=== PATIENT | female | born 1980 | race Caucasian/White ===

== ENCOUNTER 2017-12-04 11:17 | Outpatient (CLI) | payer OTHER | END 2017-12-04 11:18 | disposition home or self-care (01) | LOC: BICRAD 11:17 | PROVIDERS: ATTEND Internal Medicine Rheumatology | DX: M54.89 Other dorsalgia (principal); M51.37 Other intervertebral disc degeneration, lumbosacral region; M43.17 Spondylolisthesis, lumbosacral region | CPT/HCPCS: 72100 ==

== ENCOUNTER 2018-02-10 16:05 | Outpatient (CLI) | payer BC ==
--- NOTE | 2018-02-10 19:08 | CT ---
CT LUMBAR SPINE: HISTORY: Patient with history of L5 fracture. TECHNIQUE: Axial images are obtained with coronal and sagittal reconstructions. FINDINGS: CT images demonstrate 6 mm of anterolisthesis of L5 on S1. Bilateral pars interarticularis defects a re seen. Vacuum disk change is seen at the L5-S1 intervertebral disk space. There is moderate to se nick bilateral neural foraminal narrowing due to the anterolisthesis of L5 on S1. No evidence of significant central stenosis is seen in the rest of the lumbar spine. IMPRESSION: Grade 1 anterolisthesis of L5 on S1 with bilateral pars defects. POS: [facility]
== END 2018-02-10 16:06 | disposition home or self-care (01) ==
LOC: SCSCT 16:05
PROVIDERS: ATTEND Neurological Surgery
DX: M54.16 Radiculopathy, lumbar region (principal); M43.17 Spondylolisthesis, lumbosacral region
CPT/HCPCS: 72131

== ENCOUNTER 2018-05-28 05:05 | Outpatient (CLI) | payer BC ==
[2018-05-28 17:47] LABS: Mean Corpuscular HGB CONC 32.9 g/dL (32.0-36.0); Mean Corpuscular Hemoglobin 30.5 pg (27.0-31.0); Mean Corpuscular Volume 92.8 fL (78.0-98.0); Mean Platelet Volume 7.6 fL (7.4-10.4); Platelet Count 189 thou/uL (130-400); RBC Distribution Width 11.7 % (11.5-14.5); Red Blood Cell (RBC) Count 4.58 mill/uL (4.20-5.40); White Blood Cell (WBC) Count 5.9 thou/uL (4.8-10.8)
[2018-05-28 17:49] LABS: Prothrombin Time 12.9 SEC (12.0-14.7)
[2018-05-28 17:50] LABS: PTT 31.3 SEC (22.9-36.1)
[2018-05-28 18:08] LABS: BHCG - Serum Negative (NEGATIVE); Pregs Control Background? CLEAR/WHITE (CLR/WHITE); Pregs Control Bar Appear? YES (CONTROL BAR)
== END 2018-05-28 05:06 | disposition home or self-care (01) ==
LOC: LABBT 05:05
PROVIDERS: ATTEND Neurological Surgery
DX: Z01.812 Encounter for preprocedural laboratory examination (principal); M54.16 Radiculopathy, lumbar region; M43.06 Spondylolysis, lumbar region
CPT/HCPCS: 84703; 85027; 85610; 85730

== ENCOUNTER 2018-06-04 06:19 | Day surgery (SDC) | payer BC ==
[2018-05-28 16:49] VITALS: BMI 27.8
--- NOTE | 2018-06-03 21:54 | HP ---
HISTORY OF PRESENT ILLNESS: Ms. Neely is here today as a referral from Dr. Roach for evaluation of grade 2 spondylolisthesis at L5-S1 secondary to bilateral pars defects. This is noted on x-rays of the lumbar spine, as well as the new CT scan. She has pain down most of the right lower extremity, as well as back pain that would fit. She has had this for many years, but it has progressed to the point where now she felt it is more important to evaluate and possibly discuss surgical intervention. PAST MEDICAL HISTORY: Significant for migraine headaches and seasonal allergies. PAST SURGICAL HISTORY: section x2 and tonsillectomy. CURRENT MEDICATIONS: 1. Loestrin. 2. Low-dose aspirin. 3. Zyrtec. ALLERGIES: NO KNOWN DRUG ALLERGIES. PHYSICAL EXAMINATION: GENERAL: The patient is alert and oriented x3. Gait is only mildly antalgic. Lower extremity motor exam is normal. ASSESSMENT: Lumbar spondylolisthesis and lumbar spondylolysis. PLAN: Dr. Vega met with the patient, reviewed imaging, and advocated for L5-S1 bilateral facetectomy and fusion. He explained to the patient the risks, benefits, and alternatives to the procedure. The patient expressed understanding and would like to move forward with surgeries as discussed. I do believe the patient is mentally competent and capable of making medical decisions for herself. We will move forward with surgery as planned. Job ID: [id number]
[2018-06-04] MEDS ORDERED: Bupivacaine HCl 0.5%/Epinephrine 1:200,000/PF 30 ml Vial ONE (07:24)
[2018-06-04] MEDS ORDERED: Thrombin 5000 UNITS/5 ML VIAL ONE (07:24)
[2018-06-04] MEDS ORDERED: Fentanyl 100 MCG/2 ML VIAL ONE ×2 (07:53→10:28)
[2018-06-04] MEDS ORDERED: Ketorolac Tromethamine 30 MG/ML VIAL ONE (10:29)
[2018-06-04] MEDS ORDERED: HYDROmorphone 2 MG/ML VIAL ONE (10:34)
--- NOTE | 2018-06-04 11:06 | OP ---
DATE OF PROCEDURE: 06/04/2018 REGRINDER: Blue Lewis PA-C INDICATION: Pain. DIAGNOSES: Lumbar spondylolisthesis of L5 upon S1 with bilateral pars defects. PROCEDURES PERFORMED: Bilateral L5-S1 facetectomy, bilateral L5-S1 posterolateral instrumented fusion, placement of allograft, and placement of autograft. ANESTHESIA: General. DESCRIPTION OF PROCEDURE: The patient was brought into the operating room and placed under general anesthesia. She was flipped from the supine to prone position on the operating room table. A linear incision was planned over the L5-S1 segment. After prepping and draping and after preoperative pause, the incision was created. The soft tissues were swept away from midline. Self-retaining retractors were placed in the wound for optimal exposure. After confirming appropriate level with C-arm fluoroscopy, facetectomies were performed in the L5-S1 segment and pars defects were identified and also removed. After palpating the pedicles. Pedicle screws were placed in the L5 and S1 with the C-arm fluoroscopy. An intraoperative 3D CT scan was performed to confirm appropriate placement of hardware. Rods were then placed across the screw heads and final tightened. Allograft and autograft material were then placed within the lateral confines of the instrumentation construct. The wound was irrigated. Hemostasis was maintained throughout. The wound was then closed in anatomic layers and a pressure dressing was applied. There were no known procedural complications. Job ID: [id number]
[2018-06-04] MEDS ORDERED: Promethazine HCl 25 MG/ML VIAL ONE (11:49)
[2018-06-04] MEDS ORDERED: Dexamethasone 20 MG/5 ML VIAL ONE (13:46)
[2018-06-04] MEDS ORDERED: PHENYLEPHRINE-NS 100 MCG/ML 10 ML SYRINGE ONE (13:46)
[2018-06-04] MEDS ORDERED: PROPOFOL 200 MG/20 ML VIAL ONE (13:46)
[2018-06-04] MEDS ORDERED: Lidocaine 1% PF 5 ML VIAL ONE (13:46)
[2018-06-04] MEDS ORDERED: Rocuronium Bromide 10 MG/ML (10ML VIAL) ONE (13:46)
[2018-06-04] MEDS ORDERED: Glycopyrrolate 0.2 MG/ML 5 ML SYRINGE ONE (13:46)
[2018-06-04] MEDS ORDERED: diphenhydrAMINE 50 MG/ML VIAL ONE (13:46)
[2018-06-04] MEDS ORDERED: Ondansetron PF 4 MG/2 ML Vial ONE (13:46)
[2018-06-04] MEDS ORDERED: HYDROcodone/Acetaminophen 5/325 mg Tablet ONE (14:32)
[2018-06-04] MEDS ORDERED: Ondansetron ODT 4 MG TAB ONE (15:20)
[2018-06-04] MEDS ORDERED: Sodium Chloride 0.9% 0 ML ONE (15:59)
[2018-06-04] MEDS ORDERED: Sodium Chloride 0.9% 10 ML ONE (16:00)
== END 2018-06-04 16:30 | disposition home or self-care (01) ==
LOC: SDC 06:19
PROVIDERS: ATTEND Neurological Surgery
PROC: 0SG3071 Fusion of Lumbosacral Joint with Autologous Tissue Substitute, Posterior Approach, Posterior Column, Open Approach (ICD-10-PCS; principal; 2018-06-04)
DX: M43.16 Spondylolisthesis, lumbar region (principal); M47.816 Spondylosis without myelopathy or radiculopathy, lumbar region; J30.2 Other seasonal allergic rhinitis; G43.909 Migraine, unspecified, not intractable, without status migrainosus; Z79.82 Long term (current) use of aspirin; Z79.899 Other long term (current) drug therapy
CPT/HCPCS: 76000; C1713; C1768; J0131; J0670; J1100; J1170; J1200; J1885; J2001; J2405; J2550; J2704; J3010; Q0162

== ENCOUNTER 2018-06-12 09:42 | Outpatient (CLI) | payer BC ==
--- NOTE | 2018-06-12 11:42 | CT ---
CT LUMBAR SPINE: Date: 06/12/18 Multiple axial tomograms obtained through the lumbar spine with multiplanar reconstruction. INDICATION: Lumbar radiculopathy. Recent lumbar surgery on 06/04/18. Comparison made to CT lumbar spine dated 02/10/18. FINDINGS: Postoperative changes at L5-S1 are now noted. There are pedicle screws seen at L5-S1 since the prior study. Pedicle screws at L5 and S1 appear adequately positioned. No evidence of loosening or fracture . The anterolisthesis at L5-S1 is again noted with diffuse broad based bulge. Posterior laminectomy ritchie nges are now noted. No evidence of foraminal stenosis or encroachment. Evaluation of the central olive l at L5-S1 is limited due to metallic artifact. At L4-5, mild disc bulge is seen with facet hypertrophy. These changes result in mild central canal s tenosis. Foramina are patent. At L3-4, mild disc bulge and facet hypertrophy with very mild central canal stenosis, unchanged. No significant disc bulge at L2-3 or L1-2. IMPRESSION: Postoperative changes are now noted at L5-S1. The Grade I anterolisthesis is again noted. Pedicle scr ews appear adequately positioned. POS: [facility]
== END 2018-06-12 09:43 | disposition home or self-care (01) ==
LOC: TBSIIMAG 09:42
PROVIDERS: ATTEND Neurological Surgery
DX: M54.16 Radiculopathy, lumbar region (principal); M43.17 Spondylolisthesis, lumbosacral region; Z98.890 Other specified postprocedural states
CPT/HCPCS: 72131

== ENCOUNTER 2018-06-22 11:46 | Emergency (ER) | payer BC ==
[2018-06-22 12:27] LABS: Bilirubin Negative (Negative); Blood, Urine Negative (Negative); Clarity Clear (Clear); Glucose, Urine (Dipstick) Negative (Negative); Leukocyte Negative (Negative); Nitrite Negative (Negative); Pregnancy Test - Urine (BHCG) Negative (Negative); Pregu Control Background? CLEAR/WHITE (CLR/WHITE); Pregu Control Bar Appear? YES (CONTROL BAR); Protein, Urine (Dipstick) Negative (Neg-Trace); Specific Gravity 1.015 (1.002-1.036); Specific Gravity, Urine 1.015 (1.005-1.030); Urobilinogen 0.2 mg/dL (0.2-1.0); pH, Urine 8.5 (5.0-9.0)
[2018-06-22 12:36] LABS: #Basophils 0.1 thou/uL (0.0-0.2); #Lymphocytes 1.3 thou/uL (1.20-3.40); #Monocytes 0.4 thou/uL (0.11-0.59); #Neutrophils 6.7 thou/uL (1.40-6.50); %Basophils 0.9 % (0.0-1.0); %Eosinophils 0.4 % (0.0-10.0); %Lymphocytes 15.8 % (21.0-51.0); %Monocytes 4.4 % (0.0-10.0); %Neutrophils 78.5 % (42.0-75.0); Hemoglobin 12.6 g/dL (12.0-16.0); Mean Corpuscular HGB CONC 31.9 g/dL (32.0-36.0); Mean Corpuscular Hemoglobin 29.1 pg (27.0-31.0); Mean Corpuscular Volume 91.1 fL (78.0-98.0); Mean Platelet Volume 6.2 fL (7.4-10.4); Platelet Count 228 thou/uL (130-400); RBC Distribution Width 12.7 % (11.5-14.5); Red Blood Cell (RBC) Count 4.32 mill/uL (4.20-5.40); White Blood Cell (WBC) Count 8.5 thou/uL (4.8-10.8)
[2018-06-22 12:52] LABS: ALT (SGPT) 21 U/L (8-55); AST (SGOT) 18 U/L (5-34); Albumin 3.8 g/dL (3.5-5.0); Alkaline Phosphatase 88 U/L (40-150); Anion Gap 14 mmol/L (10-20); BUN (Urea Nitrogen) 13 mg/dL (7.0-18.7); Bilirubin, Total 0.3 mg/dL (0.2-1.2); Calc. Creatinine Clearance 0 mL/min (70-130); Calcium 9.3 mg/dL (7.8-10.44); Carbon Dioxide 25 mmol/L (22-29); Chloride 107 mmol/L (98-107); Estimated GFR-MDRD Greater than 90; Globulin 2.9 g/dL (2.4-3.5); Glucose 99 mg/dL (70-105); Protein, Total 6.7 g/dL (6.0-8.3); Sodium 142 mmol/L (136-145)
[2018-06-22] MEDS ORDERED: HYDROcodone/Acetaminophen 10/325 mg Tablet ONE (13:21)
--- NOTE | 2018-06-22 13:57 | RAD ---
PORTABLE CHEST: DATE: 06/22/2018. PROVIDED CLINICAL HISTORY: Cough. FINDINGS: Cardiac and mediastinal silhouette is within normal limits. Lungs appear clear. No pleural fluid or pneumothorax apparent. IMPRESSION: No evidence for an acute cardiopulmonary process. POS: [facility]
== END 2018-06-22 13:32 | disposition home or self-care (01) ==
LOC: SCSER 11:46
DX: B34.9 Viral infection, unspecified (principal); M54.5 Low back pain; Z79.899 Other long term (current) drug therapy; Z79.82 Long term (current) use of aspirin
CPT/HCPCS: 71045; 80053; 81003; 81025; 83605; 85025; 87804

== ENCOUNTER 2018-07-16 09:27 | Outpatient (CLI) | payer BC ==
[2018-07-16] MEDS ORDERED: Gadobenate Dimeglumine 529 MG/1 ML (20ML VIAL) ONE (10:39)
--- NOTE | 2018-07-16 12:06 | MRI ---
MRI BRAIN WITH AND WITHOUT CONTRAST: INDICATIONS: Right side headache. Numbness. 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 Right side t ongue numbness. FINDINGS: The ventricular system is normal in size. The septum pellucidum and third ventricle are midline. Ex trinsic artifact from braces distorts anatomy and does limit the evaluation. No pathologic intraaxia l enhancement is identified. No significant signal abnormalities of the brain parenchyma are identif ied. There is a partially empty sella. IMPRESSION: Limited examination due to extrinsic artifact. No definite acute intracranial abnormality. POS: OFF
== END 2018-07-16 09:28 | disposition home or self-care (01) ==
LOC: TBSIIMAG 09:27
PROVIDERS: ATTEND Psychiatry & Neurology Neurology
DX: I66.02 Occlusion and stenosis of left middle cerebral artery (principal)
CPT/HCPCS: 70553; A9577

== ENCOUNTER 2018-09-29 10:51 | Outpatient (CLI) | payer BC ==
[~2018-09-29 10:51] MED LIST: Gadobenate Dimeglumine 529 MG/1 ML (20ML VIAL) ONE
--- NOTE | 2018-09-29 14:12 | MRI ---
MRI OF THE LUMBAR SPINE WITH AND WITHOUT CONTRAST: INDICATION: A 38-year-old female with low back pain radiating down both legs after a fusion surgery in May. CONTRAST: 17 cc of MultiHance. COMPARISON: CT of the lumbar spine without contrast dated 06/12/2018. FINDINGS: Since the comparison examination, the posterolateral interbody fusion at L5-S1 is again demonstrated. Grade I anterolisthesis is stable. Conus is seen to terminate at approximately L1. Bone marrow si gnal intensity appears within normal limits. At L5-S1, there is loss of the normal disk space height in addition to the anterolisthesis inducing m ild to moderate bilateral neural foraminal narrowing. At L4-5, there is no appreciable central canal or neural foraminal narrowing. At L3-4, there is no appreciable central canal or neural foraminal narrowing. At L2-3, there is no appreciable central canal or neural foraminal narrowing. At L1-L2, there is no appreciable central canal or neural foraminal narrowing. Within the paraspinal musculature surrounding the instrumentation, there is diffuse increased T2 and diminished T1 signal with enhancement which may reflect sequelae of scar. There is delayed enhanceme nt within the paraspinal musculature near this region. No intrathecal abnormal enhancement is grossl y evident on the postcontrast series. No drainable fluid collection is grossly evident. No abnormal enhancement is seen involving the osseous structures of the lumbar spine. IMPRESSION: 1. Stable postoperative change of an L5-S1 posterior interbody fusion. 2. Prominent enhancement involving the soft tissues of the lower lumbar spinal musculature near the L5-S1 interbody fusion site suspicious for scarring/myositis. 3. Stable grade I anterolisthesis of L5-S1 with loss of disk space height in addition to the broad-b ased pseudobulge at L5-S1 and the anterolisthesis inducing at least mild to moderate bilateral neural foraminal narrowing. POS: [facility]
== END 2018-09-29 10:52 | disposition home or self-care (01) ==
LOC: SCSMRI 10:51
PROVIDERS: ATTEND Neurological Surgery
DX: M54.16 Radiculopathy, lumbar region (principal); M43.17 Spondylolisthesis, lumbosacral region; M51.87 Other intervertebral disc disorders, lumbosacral region; M48.07 Spinal stenosis, lumbosacral region; Z98.1 Arthrodesis status
CPT/HCPCS: 72158; A9577

== ENCOUNTER 2018-10-10 15:00 | Outpatient (CLI) | payer BC ==
[2018-10-10 15:58] LABS: Hemoglobin 12.9 g/dL (12.0-16.0); Mean Corpuscular HGB CONC 32.1 g/dL (32.0-36.0); Mean Corpuscular Hemoglobin 28.4 pg (27.0-31.0); Mean Corpuscular Volume 88.7 fL (78.0-98.0); Mean Platelet Volume 7.2 fL (7.4-10.4); Platelet Count 226 thou/uL (130-400); RBC Distribution Width 13.1 % (11.5-14.5); Red Blood Cell (RBC) Count 4.53 mill/uL (4.20-5.40); White Blood Cell (WBC) Count 6.1 thou/uL (4.8-10.8)
[2018-10-10 16:06] LABS: BHCG - Serum Negative (NEGATIVE); Pregs Control Background? CLEAR/WHITE (CLR/WHITE); Pregs Control Bar Appear? YES (CONTROL BAR)
== END 2018-10-10 15:01 | disposition home or self-care (01) ==
LOC: LABBT 15:00
PROVIDERS: ATTEND Obstetrics & Gynecology
DX: Z01.812 Encounter for preprocedural laboratory examination (principal); N94.6 Dysmenorrhea, unspecified
CPT/HCPCS: 84703; 85027; 86850; 86900; 86901

== ENCOUNTER 2018-10-13 08:53 | Day surgery (SDC) | payer BC ==
[2018-10-10 15:15] VITALS: BMI 32.5
[2018-10-13] MEDS ORDERED: CeleCOXIB 100 MG CAP ONE (09:49)
[2018-10-13] MEDS ORDERED: Gabapentin 300 MG CAP ONE (09:49)
[2018-10-13] MEDS ORDERED: Famotidine/PF 20 mg/2ml Vial ONE (09:49)
[2018-10-13] MEDS ORDERED: Midazolam HCl 2 mg/2 ml Vial ONE (11:11)
[2018-10-13] MEDS ORDERED: Fentanyl 250 MCG/5 ML VIAL ONE (11:11)
[2018-10-13] MEDS ORDERED: Lidocaine 2% Jelly 5 ML TUBE ONE (11:11)
[2018-10-13] MEDS ORDERED: Bupivacaine HCl 0.5%/Epinephrine 1:200,000/PF 30 ml Vial ONE (11:13)
[2018-10-13] MEDS ORDERED: Ropivacaine 0.2% 550 ML 750 ML NERVE BLCK SCH (11:45)
[2018-10-13] MEDS ORDERED: Ropivacaine HCl/PF 750 ML in Premix Bag 1 BAG NERVE BLCK SCH (12:00)
[2018-10-13] MEDS ORDERED: Promethazine HCl 25 MG/ML VIAL IM PRN ×2 (13:46→14:05)
[2018-10-13] MEDS ORDERED: Promethazine HCl 25 MG/ML VIAL SLOW IVP PRN (13:46)
[2018-10-13] MEDS ORDERED: HYDROmorphone 2 MG/ML VIAL SLOW IVP PRN (13:46)
[2018-10-13] MEDS ORDERED: Ondansetron HCl/PF 4 MG/2 ML Vial IVP PRN (13:46)
[2018-10-13] MEDS ORDERED: Ondansetron PF 4 MG/2 ML Vial IVP PRN (14:05)
[2018-10-13] MEDS ORDERED: HYDROcodone/Acetaminophen 5/325 mg Tablet PO PRN ×2 (14:05)
[2018-10-13] MEDS ORDERED: Bisacodyl 10 MG SUPP PR PRN (14:05)
[2018-10-13] MEDS ORDERED: Zolpidem Tartrate 5 MG TAB PO PRN (14:05)
[2018-10-13] MEDS ORDERED: Morphine 4 MG/ML VIAL SLOW IVP PRN (14:05)
[2018-10-13] MEDS ORDERED: Simethicone Chewable 80 MG TAB PO PRN (14:05)
[2018-10-13] MEDS ORDERED: diphenhydrAMINE 25 MG CAP PO PRN (14:05)
[2018-10-13] MEDS ORDERED: Sodium Chloride 0.9% 1,000 ML IV SCH (14:15)
[2018-10-13] MEDS ORDERED: Meperidine HCl/PF 25 MG/ML VIAL ONE (15:02)
[2018-10-13] MEDS ORDERED: Rocuronium Bromide 10 MG/ML (10ML VIAL) ONE (15:55)
[2018-10-13] MEDS ORDERED: Ondansetron PF 4 MG/2 ML Vial ONE (15:55)
[2018-10-13] MEDS ORDERED: Lidocaine 1% PF 5 ML VIAL ONE (15:55)
[2018-10-13] MEDS ORDERED: Glycopyrrolate 0.2 MG/ML 5 ML SYRINGE ONE (15:55)
[2018-10-13] MEDS ORDERED: Dexamethasone 20 MG/5 ML VIAL ONE (15:55)
[2018-10-13] MEDS ORDERED: PROPOFOL 200 MG/20 ML VIAL ONE (15:55)
[2018-10-13] MEDS ORDERED: Ketorolac Tromethamine 30 MG/ML VIAL IVP SCH (18:00)
--- NOTE | 2018-10-13 20:24 | OP ---
DATE OF PROCEDURE: 10/13/2018 PREOPERATIVE DIAGNOSES: Menorrhagia, dysmenorrhea, antiphospholipid antibody syndrome, and lupus. POSTOPERATIVE DIAGNOSES: Menorrhagia, dysmenorrhea, antiphospholipid antibody syndrome, and lupus. PROCEDURES PERFORMED: Robotic assisted total laparoscopic hysterectomy with bilateral salpingectomy and lysis of adhesions and placement of ON-Q pump. ASSIST: Pippa Joseph PA-C COMPLICATIONS: None. EBL: 50 mL ANESTHESIA: GETA. OUTPUT: Intraoperative urine output approximately 180 mL. FINDINGS: 1. Uterus sounded to approximately 6 cm, normal-appearing cervix and vaginal mucosa. 2. Intraabdominal adhesions noted with the omentum adhered to the anterior abdominal wall in the midline. Normal-appearing uterus, tubes, and ovaries bilaterally. Surgical sites hemostatic. DESCRIPTION OF PROCEDURE: The patient was taken back to the OR with IV fluids running. When she was in the OR, she was placed in dorsal supine position and anesthesia was obtained. Once the patient was asleep, she was placed in low dorsal lithotomy position. The abdomen and vagina were prepped and draped in normal fashion for laparoscopic gynecologic surgery. The surgeons were gowned and gloved and scrubbed in. The bladder was drained and approximately 100 mL of urine was noted. An operative speculum was placed into the vagina. The anterior lip of the cervix was grasped with a single-tooth tenaculum and the cervix was serially dilated. A Stephanie-Julianna manipulator was assembled with a 3.5 cm cup and a 6 cm tip and was placed into the uterus in normal fashion. The intrauterine balloon was insufflated as well as the intravaginal balloon used for pneumoperitoneum. After the uterine manipulator was placed, the surgeon's gloves were changed and attention was turned to the laparoscopic portion of the case beginning at the supraumbilical fold, anesthesia was injected underneath the skin. A 12 mm skin incision was made and a Veress needle was placed through the skin incision. The abdomen was then insufflated without difficulty. The Veress needle was then removed and a 12 mm trocar was placed through this incision without difficulty. The laparoscope was then placed through this port with the above findings noted. The patient was then placed in Trendelenburg position. The right lower quadrant 8 mm port and right upper quadrant 11 mm port were placed under direct visualization. The left lower quadrant port was placed under direct visualization without difficulty. However, the omental adhesions were noted to be obstructing the instrument path of the left lower quadrant port. For this reason, the camera was changed to a 5 mm scope. A 5 mm scope was passed through the right lower quadrant port for full visualization of the omental adhesion. Laparoscopic monopolar scissors were then used to lyse the omental adhesions from the anterior abdomen. These were completed to allow for passage and visualization of the left lower quadrant instruments. The remaining segment of omental adhesions was left in the midline to complete that dissection with robotic assistance. The robotic arms were docked and the instruments were placed under direct visualization into the pelvis. The surgeon moved to the operative console. The remaining omental adhesions were cauterized and incised in the midline, allowing the omental adhesions to fall away. The omentum was inspected and irrigated and any small areas of bleeding were controlled with bipolar cautery. After the lysis of adhesions was completed, attention was turned to the patient's left side. The left fallopian tube was grasped, elevated, and cauterized using bipolar cautery. It was then transected and removed from the operative field. The left ovary appeared normal. The left utero-ovarian ligament was then cauterized and transected. The round ligament on the patient's left side was grasped, cauterized, and transected. It was then dissected down the anterior and posterior leaves toward the level of the uterine artery. Uterine artery was easily visualized. It was then cauterized and transected. The bladder was backfilled and noted to be away from the colpotomy site. The vesicouterine fascia was then dissected in layers, taking care to visualize the bladder under distention. After this portion of procedure was completed on the left side, it was completed in similar fashion on the right side beginning with transection of the right fallopian tube. The right fallopian tube was removed from the surgical field and sent for pathologic review. The right ovarian ligament was cauterized and transected. The round ligament was cauterized and then dissected into anterior and posterior leaves down toward the level of the uterine artery. The anterior leaf was dissected down toward the bladder flap and the bladder flap dissection was completed with the bladder dissected well away from the planned colpotomy site. The uterine artery on the patient's right side was cauterized and transected. The colpotomy was then performed beginning posteriorly and completing circumferentially using monopolar scissors. After the colpotomy was complete, the uterine specimen was retracted into the vagina. The vaginal cuff was irrigated and any areas of bleeding were controlled with bipolar cautery. The vaginal cuff was then closed with Stratafix suture in a running fashion. It was closed in 2 layers. With hemostasis achieved, after the cuff was closed and the suture was removed from the operating field, the vaginal cuff and surgical pedicles were copiously irrigated and suctioned dry. The pressure was dropped to 6 mmHg with no evidence of bleeding noted. The omentum was again inspected with no bleeding noted. An ON-Q catheter tip was then placed under direct visualization through the midline abdominal wall. The catheter was pulled down into the pelvis and it was primed. All instruments were then removed from the abdominal cavity. The count was correct. The gas was released from the abdomen. The supraumbilical skin fascial layer was closed with Vicryl suture. All four skin incisions were closed with Monocryl suture and dressed with Dermabond dressing and the Tegaderm sterile dressing was placed over the ON-Q catheter insertion site. The vagina was inspected with no bleeding noted. The patient was then cleaned, dried, taken out of lithotomy position, extubated, and transferred to recovery room in good condition. Job ID: [id number]
[2018-10-13] MEDS ORDERED: Triple Antibiotic Ointment 30 GM TUBE TOP PRN (20:31)
[2018-10-13 20:55] VITALS: BP 142/72; TEMP 97.8
[2018-10-13] MEDS ORDERED: Hydroxychloroquine Sulfate 200 MG TAB PO SCH (21:00)
[2018-10-14] MEDS ORDERED: Loratadine 10 MG TAB PO SCH (09:00)
[2018-10-18] MEDS ORDERED: Ibuprofen 800 MG TAB PO SCH (22:00)
== END 2018-10-13 20:45 | disposition home or self-care (01) ==
LOC: SDC 08:53 → 3SW 14:05 → SDC 20:45
PROVIDERS: ATTEND Obstetrics & Gynecology
PROC: 0UT94ZZ Resection of Uterus, Percutaneous Endoscopic Approach (ICD-10-PCS; principal; 2018-10-13)
PROC: 0UT74ZZ Resection of Bilateral Fallopian Tubes, Percutaneous Endoscopic Approach (ICD-10-PCS; principal; 2018-10-13)
DX: N80.0 Endometriosis of uterus (principal); N72 Inflammatory disease of cervix uteri; K66.0 Peritoneal adhesions (postprocedural) (postinfection); D68.61 Antiphospholipid syndrome; L93.0 Discoid lupus erythematosus; G89.18 Other acute postprocedural pain; G47.00 Insomnia, unspecified; I73.00 Raynaud's syndrome without gangrene; Z79.82 Long term (current) use of aspirin; Z79.899 Other long term (current) drug therapy
CPT/HCPCS: 88307; J0131; J0670; J0690; J1100; J1885; J2001; J2175; J2250; J2405; J2704; J2795; J3010; S0028

== ENCOUNTER 2020-08-12 14:52 | Outpatient (CLI) | payer BC | END 2020-08-12 14:53 | disposition home or self-care (01) | LOC: SCSRAD 14:52 | PROVIDERS: ATTEND Family Medicine | DX: R07.9 Chest pain, unspecified (principal); M32.9 Systemic lupus erythematosus, unspecified; R91.8 Other nonspecific abnormal finding of lung field | CPT/HCPCS: 71046 ==

== ENCOUNTER 2020-12-28 06:59 | Outpatient (CLI) | payer BC ==
[2020-12-28] MEDS ORDERED: Magnevist 469MG/ML 20 ML VIAL ONE (09:48)
== END 2020-12-28 07:00 | disposition home or self-care (01) ==
LOC: BICMRI 06:59
PROVIDERS: ATTEND Neurological Surgery
DX: M54.16 Radiculopathy, lumbar region (principal); M43.17 Spondylolisthesis, lumbosacral region; M48.07 Spinal stenosis, lumbosacral region; M51.37 Other intervertebral disc degeneration, lumbosacral region; Z98.890 Other specified postprocedural states
CPT/HCPCS: 72158; A9579

== ENCOUNTER 2020-12-30 15:59 | Outpatient (CLI) | payer BC ==
[2020-12-31 00:54] LABS: SARS-CoV-2 PCR by NAA Not Detected (NotDetected)
== END 2020-12-30 16:00 | disposition home or self-care (01) ==
LOC: LABBT 15:59
PROVIDERS: ATTEND Neurological Surgery
DX: Z01.812 Encounter for preprocedural laboratory examination (principal); M43.16 Spondylolisthesis, lumbar region; M54.50 Low back pain, unspecified; Z20.822 Contact with and (suspected) exposure to COVID-19
CPT/HCPCS: U0003; U0005

== ENCOUNTER 2021-01-04 06:52 | Day surgery (SDC) | payer BC ==
[2021-01-03 11:10] VITALS: BMI 26.1
[2021-01-04] MEDS ORDERED: ceFAZolin 2 GM/DEX 5% 100 ML BAG ONE ×3 (07:28→15:10)
[2021-01-04] MEDS ORDERED: EPINEPHrine 1 MG/ML AMP ONE (07:58)
[2021-01-04] MEDS ORDERED: Bupivacaine PF 0.5% 30 ML VIAL ONE (07:58)
[2021-01-04] MEDS ORDERED: Thrombin 5000 UNITS/5 ML VIAL ONE (08:51)
[2021-01-04] MEDS ORDERED: Fentanyl 250 MCG/5 ML VIAL ONE (09:21)
[2021-01-04] MEDS ORDERED: Midazolam HCl 2 mg/2 ml Vial ONE (09:31)
[2021-01-04] MEDS ORDERED: Lidocaine 1% PF 5 ML VIAL ONE (09:34)
[2021-01-04] MEDS ORDERED: Ondansetron PF 4 MG/2 ML Vial ONE (09:34)
[2021-01-04] MEDS ORDERED: Rocuronium Bromide 10 MG/ML (10ML VIAL) ONE (09:34)
[2021-01-04] MEDS ORDERED: PROPOFOL 200 MG/20 ML VIAL ONE (09:34)
[2021-01-04] MEDS ORDERED: Glycopyrrolate 0.2 MG/ML 5 ML SYRINGE ONE (09:34)
[2021-01-04] MEDS ORDERED: Dexamethasone 20 MG/5 ML VIAL ONE (09:34)
[2021-01-04] MEDS ORDERED: Fentanyl 100 MCG/2 ML VIAL ONE (11:14)
[2021-01-04] MEDS ORDERED: Morphine 4 MG/ML VIAL ONE (12:24)
[2021-01-04] MEDS ORDERED: Promethazine HCl 25 MG/ML VIAL ONE (12:54)
[2021-01-04] MEDS ORDERED: HYDROcodone/Acetaminophen 5/325 mg Tablet ONE (14:48)
[2021-01-04] MEDS ORDERED: Cyclobenzaprine 10 MG TAB ONE (16:00)
== END 2021-01-04 16:30 | disposition home or self-care (01) ==
LOC: SDC 06:52
PROVIDERS: ATTEND Neurological Surgery
PROC: 0SG3071 Fusion of Lumbosacral Joint with Autologous Tissue Substitute, Posterior Approach, Posterior Column, Open Approach (ICD-10-PCS; principal; 2021-01-04)
PROC: 0SP304Z Removal of Internal Fixation Device from Lumbosacral Joint, Open Approach (ICD-10-PCS; principal; 2021-01-04)
DX: T84.216A Breakdown (mechanical) of internal fixation device of vertebrae, initial encounter (principal); T84.84XA Pain due to internal orthopedic prosthetic devices, implants and grafts, initial encounter; M54.16 Radiculopathy, lumbar region; G43.909 Migraine, unspecified, not intractable, without status migrainosus; Z79.82 Long term (current) use of aspirin; Z79.899 Other long term (current) drug therapy; Z91.010 Allergy to peanuts; Z91.018 Allergy to other foods
CPT/HCPCS: C1768; J0171; J1100; J2250; J2270; J2405; J2550; J2704; J3010; S0020